=== PATIENT | male | born 1995 ===

== ENCOUNTER 2018-02-22 16:46 | Emergency (ER) | payer BC ==
[~2018-02-22] VITALS: Ht 175.3 cm; Wt 64.0 kg
[2018-02-22 16:55] VITALS: Ht 175.3 cm; Wt 64.0 kg
[2018-02-22 17:47] LABS: microscopic required? NO
[2018-02-22 17:50] LABS: BASOPHIL % 0.3 % (0-2); PLATELET COUNT 334 x10^3mcL (130-400); RED CELL DISTRIBUTION WIDTH 14.5 % (11.5-14.5)
[2018-02-22 17:55] LABS: urine erythrocyte NEGATIVE (NEGATIVE)
[2018-02-22 17:56] LABS: CALCIUM 8.8 mg/dL (8.5-10.1); CARBON DIOXIDE 26.7 mmol/L (21-32); CHLORIDE SERUM 101 mmol/L (98-107); CREATININE SERUM 0.8 mg/dL (0.7-1.3); GFR1 > 60 mL/min; GLUCOSE SERUM 126 mg/dL (74-106); POTASSIUM SERUM 3.4 mmol/L (3.5-5.1); SODIUM SERUM 133 mmol/L (136-145)
[2018-02-22 18:03] LABS: AMPHETAMINE QUAL UR NONE DETECTED (NEG <=1000)
[2018-02-22 18:08] LABS: ALBUMIN 4.3 g/dL (3.4-5.0); ALKALINE PHOSPHATASE 54 U/L (46-116); ALT/SGPT 34 U/L (16-63); AMYLASE 39 U/L (25-115); AST/SGOT 13 U/L (15-37); BILIRUBIN TOTAL 0.67 mg/dL (0.20-1.00); CHOLESTEROL 117 mg/dL (<200); LIPASE 83 IU/L (73-393); MAGNESIUM 1.9 mg/dL (1.8-2.4); T4(THYROXINE) 8.2 ug/dL (4.7-13.3); TOTAL PROTEIN, SERUM 7.6 g/dL (6.4-8.2)
[2018-02-22 19:32] VITALS: BP 150/94
== END 2018-02-22 19:32 | disposition short-term general hospital (02) ==
LOC: ED 16:46
PROVIDERS: Emergency Medicine
DX: I61.9 Nontraumatic intracerebral hemorrhage, unspecified (principal); E87.8 Other disorders of electrolyte and fluid balance, not elsewhere classified; G47.00 Insomnia, unspecified; F41.9 Anxiety disorder, unspecified
CPT/HCPCS: 83880; G0480; J7030; Q0092